=== PATIENT | male | born 1980 | race Caucasian/White ===

== ENCOUNTER 2018-09-12 16:30 | Emergency (ER) | payer OTHER | END 2018-09-12 17:45 | disposition home or self-care (01) | LOC: FTE 16:30 | DX: Z00.00 Encounter for general adult medical examination without abnormal findings (principal); E11.9 Type 2 diabetes mellitus without complications; Z79.4 Long term (current) use of insulin; Z79.82 Long term (current) use of aspirin | CPT/HCPCS: 71045; 99283-25 ==